=== PATIENT | female | born 1950 | race Caucasian/White ===

== ENCOUNTER 2017-08-16 17:16 | Emergency (ER) | payer MEDICARE, BC ==
[2017-08-16 17:39] VITALS: BP 131/79
--- NOTE | 2017-08-16 18:26 | UC ---
Cardiac HPI - HPI Summary HPI Summary: 66 yo WF p/w substernal sharp pains x 1 hr after hiking, no variation with inspiration or position but associated with dry cough and URI x 5 days but chills and fatigue started x 2 days - History of Current Complaint Chief Complaint: UCRespiratory Stated Complaint: COUGH Time Seen by Provider: 08/16/17 18:11 Hx Obtained From: Patient Onset/Duration: Lasting Days Initial Severity: Moderate Current Severity: Moderate Pain Intensity: 4 Chest Pain Location: Mid Sternal, Upper Sternal - Allergy/Home Medications Allergies/Adverse Reactions: Allergies Allergy/AdvReac Type Severity Reaction Status Date / Time erythromycin base Allergy GI Upset Verified 08/16/17 17:40 gentamicin Allergy See Comment Verified 08/16/17 17:40 Penicillins Allergy Rash Verified 08/16/17 17:40 Sulfa (Sulfonamide Allergy Hives Verified 08/16/17 17:40 Antibiotics) Home Medications: Home Medications C,E,Zinc,Copper 11/Dxgtf1e/Lut [Ocuvite Adult 50 Plus Softgel] 1 each PO [History] PMH/Surg Hx/FS Hx/Imm Hx Previously Healthy: Yes - Surgical History Surgical History: Yes Surgery Procedure, Year, and Place: Rt SHOULDER - RCT. Rt BREAST BIOPSY - BENIGN - 30+yrs ago. TUBAL LIGATION. CATARACTS - Social History Alcohol Use: Occasionally Substance Use Type: None Smoking Status (MU): Never Smoked Tobacco Review of Systems Constitutional: Fever, Chills, Fatigue Skin: Negative Eyes: Negative ENT: Negative Respiratory: Cough, Other - upper chest pain with cough Cardiovascular: Chest Pain Gastrointestinal: Negative Genitourinary: Negative Motor: Negative Neurovascular: Negative Musculoskeletal: Negative Neurological: Negative Psychological: Negative All Other Systems Reviewed And Are Negative: Yes Physical Exam Triage Information Reviewed: Yes Appearance: Thin Vital Signs: Initial Vital Signs Temp 37.5 C 08/16/17 17:29 Pulse 77 08/16/17 17:29 Resp 18 08/16/17 17:29 BP 131/79 08/16/17 17:29 Pulse Ox 99 08/16/17 17:29 Eye Exam: Normal ENT Exam: Normal ENT: Positive: Pharynx normal Dental Exam: Normal Neck exam: Normal Neck: Positive: 1 Respiratory: Positive: No respiratory distress, Other: - mild coarse BS B/L Cardiovascular Exam: Normal Abdominal Exam: Normal Musculoskeletal Exam: Normal Neurological Exam: Normal Psychological Exam: Normal Skin Exam: Normal - Assessment/Plan Course Of Treatment: CXR - large lung volumes with mild right perihilar density> L, no cesar infiltrates. Rapid Flu positive for Flu B. Will tx for acute Flu as bodyaches started about 2 days ago preceded by URI sx and bronchitis as secondary infection in light of pt's presentation - Clinical Impression Provider Diagnoses: Influenza B. Bronchitis Discharge - Sign-Out/Discharge Documenting (check all that apply): Discharge - Discharge Plan Condition: Stable Disposition: HOME Prescriptions: Cefuroxime 500 MG(NF) 500 mg PO BID 7 Days #14 tab Oseltamivir CAP* [Tamiflu CAP*] 75 mg PO BID 5 Days #10 cap Referrals: Jonny Tan MD [Primary Care Provider] - - Billing Disposition and Condition Condition: STABLE Disposition: HOME
--- NOTE | 2017-08-16 18:47 | RAD ---
INDICATION: Substernal chest pain for 3 hours. Minor cough. COMPARISON: No relevant prior exams available on the [facility] for comparison. TECHNIQUE: Dual energy PA and routine lateral views of the chest were obtained. REPORT: Elevated lung volumes and both diffuse mild prominence of the interstitial markings and patchy rarefaction of the mid to upper lung zone interstitial markings. No focal pulmonary lesion, compelling alveolar consolidation, pleural effusion, pneumothorax. The heart, pulmonary vasculature, and mediastinal contours are unremarkable. Surgical anchor at the RIGHT humeral head. IMPRESSION: 1. Stigmata of potential chronic obstructive pulmonary disease. 2. No acute cardiopulmonary process evident.
== END 2017-08-16 19:26 | disposition home or self-care (01) ==
LOC: UCEAST 17:16
DX: J10.1 Influenza due to other identified influenza virus with other respiratory manifestations (principal); J40 Bronchitis, not specified as acute or chronic; Z88.1 Allergy status to other antibiotic agents; Z88.0 Allergy status to penicillin; Z88.2 Allergy status to sulfonamides
CPT/HCPCS: 71046; 87502; 93005; 99212; G0463

== ENCOUNTER 2017-08-19 13:16 | Emergency (ER) | payer MEDICARE, BC ==
[2017-08-19 14:08] VITALS: BP 128/83
--- NOTE | 2017-08-19 14:24 | UC ---
FLU HPI - HPI Summary HPI Summary: Patient was seen at the urgent care 3 days ago diagnosed with flu and bronchitis was treated with Ceftin and Tamiflu. Patient comes to the urgent care today stating that she had chest discomfort while she was out ambulating on a mild block with her patient says the chest discomfort continues. Patient is a little put off by the thought that this might be cardiac issue and is absolutely positive that this is a respiratory issue. Of which I'm not completely convinced based on her story - History of Current Complaint Chief Complaint: UCRespiratory Stated Complaint: CHEST CONGESTION Time Seen by Provider: 08/19/17 14:13 Hx Obtained From: Patient ?: No Onset/Duration: Sudden Onset Severity Currently: Moderate Severity Initially: Moderate Pain Intensity: 4 Pain Scale Used: 0-10 Numeric Associated Signs & Symptoms: Positive: Negative Related Hx: Possible Flu/Infectious Exposure - Allergy/Home Medications Allergies/Adverse Reactions: Allergies Allergy/AdvReac Type Severity Reaction Status Date / Time erythromycin base Allergy GI Upset Verified 08/19/17 14:09 gentamicin Allergy See Comment Verified 08/19/17 14:09 Penicillins Allergy Rash Verified 08/19/17 14:09 Sulfa (Sulfonamide Allergy Hives Verified 08/19/17 14:09 Antibiotics) PMH/Surg Hx/FS Hx/Imm Hx Previously Healthy: Yes - Surgical History Surgical History: Yes Surgery Procedure, Year, and Place: Rt SHOULDER - RCT. Rt BREAST BIOPSY - BENIGN - 30+yrs ago. TUBAL LIGATION. CATARACTS - Family History Known Family History: Positive: None - Social History Occupation: Retired Lives: With Family Alcohol Use: Occasionally Substance Use Type: None Smoking Status (MU): Never Smoked Tobacco Review of Systems Constitutional: Negative Skin: Negative Eyes: Negative ENT: Negative Respiratory: Negative Cardiovascular: Chest Pain - Describes as a midsternal pressure began when she was ambulating Gastrointestinal: Negative Genitourinary: Negative Motor: Negative Neurovascular: Negative Musculoskeletal: Negative Neurological: Negative Psychological: Negative Is Patient Immunocompromised?: No All Other Systems Reviewed And Are Negative: Yes Physical Exam Triage Information Reviewed: Yes Appearance: Well-Appearing, No Pain Distress, Well-Nourished Vital Signs: Initial Vital Signs Temp 98.2 F 08/19/17 14:05 Pulse 71 08/19/17 14:05 Resp 12 08/19/17 14:05 BP 128/83 08/19/17 14:05 Pulse Ox 100 08/19/17 14:05 Vital Signs Reviewed: Yes Eye Exam: Normal Eyes: Positive: Conjunctiva Clear ENT Exam: Normal ENT: Positive: Normal ENT inspection, Hearing grossly normal, Pharynx normal, Uvula midline. Negative: Nasal congestion, TMs normal, Tonsillar swelling, Tonsillar exudate, Trismus, Muffled voice, Hoarse voice, Dental tenderness, Sinus tenderness Dental Exam: Normal Neck exam: Normal Neck: Positive: Supple, Nontender, No Lymphadenopathy Respiratory Exam: Normal Respiratory: Positive: Chest non-tender, Lungs clear, Normal breath sounds, No respiratory distress, No accessory muscle use Cardiovascular Exam: Normal Cardiovascular: Positive: RRR, No Murmur, Pulses Normal, Brisk Capillary Refill Musculoskeletal Exam: Normal Musculoskeletal: Positive: Strength Intact, ROM Intact, No Edema Neurological Exam: Normal Neurological: Positive: Alert, Muscle Tone Normal Psychological Exam: Normal Skin Exam: Normal Diagnostics - EKG Cardiac Rate: NL Cardiac Rhythm: Sinus: Normal Ectopy: None Flu Course/Dx - Course Course Of Treatment: Patient indecisive she was willing to go to the hospital by EMS. EMS called patient refused patient signed AMA that she'll take herself to the hospital aspirin given - Differential Dx/Diagnosis Provider Diagnoses: Chest pain, influenza, bronchitis Discharge - Sign-Out/Discharge Documenting (check all that apply): Discharge - Discharge Plan Condition: Guarded Disposition: HOME Discharge Disposition Comment: patient is being discharged to go to the [facility] for evaluation of c Patient Education Materials: Chest Pain (ED) Referrals: Jonny Tan MD [Primary Care Provider] - - Billing Disposition and Condition Condition: GUARDED Disposition: HOME
[2017-08-19] MEDS ORDERED: Albuterol/Ipratropium NEB.SOL* Albuterol 2.5 MG/Ipratropium 0.5 MG 3 ML INH ONE (14:32)
[2017-08-19] MEDS ORDERED: Aspirin 81 mg CHEW TAB* 81 MG TAB.CHEW PO ONE (15:26)
== END 2017-08-19 15:45 | disposition home or self-care (01) ==
LOC: UCEAST 13:16
DX: J11.1 Influenza due to unidentified influenza virus with other respiratory manifestations (principal); J40 Bronchitis, not specified as acute or chronic; R07.89 Other chest pain; Z88.1 Allergy status to other antibiotic agents; Z88.0 Allergy status to penicillin
CPT/HCPCS: 93005; 99212; A9270-GY; G0463

== ENCOUNTER 2017-08-19 16:07 | Emergency (ER) | payer MEDICARE, BC ==
[2017-08-19] MEDS ORDERED: NS 0.9% 1000 ML* 1,000 ML IV SCH (18:00)
--- NOTE | 2017-08-19 18:32 | RAD ---
INDICATION: Cough and shortness of breath COMPARISON: Chest x-ray August 16, 2017 TECHNIQUE: PA and lateral views of the chest were obtained. FINDINGS: The heart and mediastinum are normal in size and contour. The lungs are grossly clear. There is no evidence of large pleural effusion. Visualized bones are normal for the patient's age. There is no radiographic evidence of free air beneath the diaphragm IMPRESSION: No radiographic evidence of acute cardiopulmonary disease.
[2017-08-19 18:43] LABS: ABS Basophils 0.1 10^3/ul (0-0.2); ABS Eosinophils 0 10^3/ul (0-0.6); ABS Lymphocytes 1.2 10^3/ul (1.0-4.8); ABS Monocytes 0.3 10^3/ul (0-0.8); ABS Neutrophils 1.1 10^3/ul (1.5-7.7); ABS Nucleated RBC 0 10^3/ul; Eosinophil % 0.6 % (0-6); Hematocrit 40 % (35-47); Hemoglobin 13.8 g/dl (12.0-16.0); Lymphocyte % 45.1 % (25-47); Mean Corpuscular HGB Conc 34 g/dl (31-36); Mean Corpuscular Hemoglobin 31 pg (27-31); Mean Corpuscular Volume 91 fL (80-97); Mean Platelet Volume 8.1 um3 (7.4-10.4); Nucleated Red Blood Cells % 0; Platelet Count 129 10^3/ul (150-450); Red Blood Count 4.43 10^6/ul (4.0-5.4); Red Cell Distribution Width 14 % (10.5-15); White Blood Count 2.7 10^3/ul (3.5-10.8)
[2017-08-19 19:01] LABS: EGFR Non-African American 84.9 (>60)
[2017-08-19] MEDS ORDERED: Iohexol 350* (CONTRAST) 500 ML MDV IV ONE (19:25)
--- NOTE | 2017-08-19 19:35 | RAD ---
INDICATION: Shortness of breath and general illness COMPARISON: None TECHNIQUE: Axial source images were acquired following the administration of 50 mL Omnipaque [address] angiographic technique. Coronal and sagittal reconstructed images were constructed and reviewed. FINDINGS: There there are no filling defects in the pulmonary arteries to indicate acute pulmonary embolic disease. There are no focal infiltrates or effusions. There are no pulmonary parenchymal masses. The heart is normal in size. There is no evidence of pericardial effusion. There is no evidence of aortic aneurysm or dissection. There is no mediastinal, hilar, or axillary lymphadenopathy. Degenerative changes of the thoracic spine includes loss of intervertebral disc height and sclerotic change of the anterior articulating endplates at T9/T10. Limited views of the upper abdomen show no abnormalities. IMPRESSION: No CT of evidence of pulmonary embolism or other acute intrathoracic abnormality.
--- NOTE | 2017-08-19 21:21 | ED ---
Nicky Lassiter Emily, scribed for Jorge Lopez MD on 08/19/17 at 1752 . HPI Chest Pain - HPI Summary HPI Summary: This patient is a 66 year old F referred to [facility] by urgent care with a chief complaint of sharp pleuritic CP that worsened today. The patient rates the pain 4/10 in severity. Symptoms aggravated by nothing. Symptoms alleviated by nothing. Patient reports SOB. Patient denies palpitations. Pt was recently diagnosed with Flu B and bronchitis, and is currently taking Zpac and Tamiflu. Pt reports feeling better and less short of breath, but became more short of breath today. - History of Current Complaint Chief Complaint: EDShortnessOfBreath Hx Obtained From: Patient Onset/Duration: Started Hours Ago, Still Present Timing: Constant, Lasting Hours Initial Severity: Moderate Current Severity: Moderate Pain Intensity: 4 Pain Scale Used: 0-10 Numeric Chest Pain Location: Mid Sternal Chest Pain Radiates: No Character: Sharp/Stabbing Aggravating Factor(s): Nothing Alleviating Factor(s): Nothing Associated Signs and Symptoms: Positive: Other: - Positive SOB. Negative palpitations - Allergy/Home Medications Allergies/Adverse Reactions: Allergies Allergy/AdvReac Type Severity Reaction Status Date / Time erythromycin base Allergy GI Upset Verified 08/19/17 14:09 gentamicin Allergy See Comment Verified 08/19/17 14:09 Penicillins Allergy Rash Verified 08/19/17 14:09 Sulfa (Sulfonamide Allergy Hives Verified 08/19/17 14:09 Antibiotics) Home Medications: Home Medications Cod Liver Oil 1 cap PO DAILY 08/19/17 [History Confirmed 08/19/17] Vitamin B Complex CAP* [B Complex CAP*] 1 cap PO DAILY 08/19/17 [History Confirmed 08/19/17] PMH/Surg Hx/FS Hx/Imm Hx Previously Healthy: Yes Endocrine/Hematology History: Denies: Hx Diabetes Cardiovascular History: Denies: Hx Hypertension, Hx Pacemaker/ICD History: Denies: Hx Renal Disease Sensory History: Denies: Hx Hearing Aid Psychiatric History: Denies: Hx Panic Disorder - Cancer History Hx Chemotherapy: No Hx Radiation Therapy: No - Surgical History Surgery Procedure, Year, and Place: Rt SHOULDER - RCT. Rt BREAST BIOPSY - BENIGN - 30+yrs ago. TUBAL LIGATION. CATARACTS Infectious Disease History: No Infectious Disease History: Reports: Traveled Outside the [place] in Last 30 Days - came back from [facility] 08/07/17 - Family History Known Family History: Positive: None - Social History Occupation: Retired Lives: With Family Alcohol Use: Occasionally Substance Use Type: Reports: None Hx Tobacco Use: No Smoking Status (MU): Never Smoked Tobacco Review of Systems Positive: Chest Pain. Negative: Palpitations Positive: Shortness Of Breath All Other Systems Reviewed And Are Negative: Yes Physical Exam - Summary Physical Exam Summary: Appearance: Well-appearing, Well-nourished Skin: Warm Eyes: Normal ENT: Normal Neck: Supple, nontender Respiratory: No wheezing. No rhonchi. No rhales. Coarse breath sounds bilaterally. Cardiovascular: Regular rate, regular rhythm. Normal S1, S2. Abdomen: Soft, nontender Musculoskeletal: Normal, Strength/ROM Intact Neurological: Normal, A&Ox3 Psychiatric: Normal General: No acute distress Triage Information Reviewed: Yes Vital Signs On Initial Exam: Initial Vitals Temp Pulse Resp BP Pulse Ox 97.5 F 76 16 135/92 100 08/19/17 16:11 08/19/17 16:11 08/19/17 16:11 08/19/17 16:11 08/19/17 16:11 Vital Signs Reviewed: Yes Diagnostics - Vital Signs Vital Signs Temp Pulse Resp BP Pulse Ox 08/19/17 16:11 97.5 F 76 16 135/92 100 - Laboratory Lab Results: Lab Results 08/19/17 08/19/17 08/19/17 Range/Units 18:33 18:33 18:33 WBC 2.7 L (3.5-10.8) 10^3/ul RBC 4.43 (4.0-5.4) 10^6/ul Hgb 13.8 (12.0-16.0) g/dl Hct 40 (35-47) % MCV 91 (80-97) fL MCH 31 (27-31) pg MCHC 34 (31-36) g/dl RDW 14 (10.5-15) % Plt Count 129 L (150-450) 10^3/ul MPV 8.1 (7.4-10.4) um3 Neut % (Auto) 39.6 (38-83) % Lymph % (Auto) 45.1 (25-47) % [place] % (Auto) 12.6 H (0-7) % Eos % (Auto) 0.6 (0-6) % Baso % (Auto) 2.1 H (0-2) % Absolute Neuts (auto) 1.1 L (1.5-7.7) 10^3/ul Absolute Lymphs (auto) 1.2 (1.0-4.8) 10^3/ul Absolute Monos (auto) 0.3 (0-0.8) 10^3/ul Absolute Eos (auto) 0 (0-0.6) 10^3/ul Absolute Basos (auto) 0.1 (0-0.2) 10^3/ul Absolute Nucleated RBC 0 10^3/ul Nucleated RBC % 0 D-Dimer, Quantitative < 200 (Less Than 230) ng/mL Sodium 135 L (139-145) mmol/L Potassium 3.6 (3.5-5.0) mmol/L Chloride 101 (101-111) mmol/L Carbon Dioxide 26 (22-32) mmol/L Anion Gap 8 (2-11) mmol/L BUN 9 (6-24) mg/dL Creatinine 0.69 (0.51-0.95) mg/dL Est GFR ( Amer) 109.1 (>60) Est GFR (Non-Af Amer) 84.9 (>60) BUN/Creatinine Ratio 13.0 (8-20) Glucose 109 H (70-100) mg/dL Calcium 9.4 (8.6-10.3) mg/dL Total Bilirubin 0.40 (0.2-1.0) mg/dL AST 54 H (13-39) U/L ALT 46 (7-52) U/L Alkaline Phosphatase 40 (34-104) U/L Troponin I 0.00 (<0.04) ng/mL Total Protein 6.7 (6.4-8.9) g/dL Albumin 4.4 (3.2-5.2) g/dL Globulin 2.3 (2-4) g/dL Albumin/Globulin Ratio 1.9 (1-3) Result Diagrams: 08/19/17 18:33 08/19/17 18:33 Lab Statement: Any lab studies that have been ordered have been reviewed, and results considered in the medical decision making process. - Radiology CXR Radiology Interpretation Completed By: Radiologist - CXR reveals, per radiologist, no radiographic evidence of acute cardiopulmonary disease. ED physician has reviewed this radiology report. - CT Chest CT CT Interpretation Completed By: Radiologist - Chest CT reveals, per radiologist , no CT evidence of pulmonary embolism or other acute intrathoracic abnormality. ED physician has reviewed this radiology report. - EKG 182 Cardiac Rate: NL EKG Rhythm: Sinus Rhythm - 64 BPM EKG Interpretation: No ST T wave changes Chest Pain Course/Dx - Course Course Of Treatment: CTA neg for PE, mild leukopenia with monocytosis may be c/ w recent dx of Flu B. trop neg, CXR read as neg but I see some perihilar infiltrates. Pt already on Tamiflu and Z-golden from prior UC visit - Diagnoses Provider Diagnoses: Dyspnea, unspecified Discharge - Sign-Out/Discharge Documenting (check all that apply): Discharge - Discharge Plan Condition: Stable Disposition: HOME Patient Education Materials: Dyspnea (ED) Referrals: Jonny Tan MD [Primary Care Provider] - Additional Instructions: follow up with PCP within one week - Billing Disposition and Condition Condition: STABLE Disposition: HOME The documentation as recorded by the Nicky jackson Emily accurately reflects the service I personally performed and the decisions made by , Jorge Lopez MD.
[2017-08-19 21:39] VITALS: BP 106/80
== END 2017-08-19 21:38 | disposition home or self-care (01) ==
LOC: ED 16:07
DX: R06.00 Dyspnea, unspecified (principal); Z88.0 Allergy status to penicillin; Z88.2 Allergy status to sulfonamides; J11.1 Influenza due to unidentified influenza virus with other respiratory manifestations; J40 Bronchitis, not specified as acute or chronic; R07.89 Other chest pain
CPT/HCPCS: 36415; 71046; 71275; 80053; 84484; 85025; 85379; 87040; 93005; 96360; 96374; 99283; Q9967

== ENCOUNTER 2018-02-22 06:05 | Observation (INO) | payer MEDICARE, BC ==
[~2018-02-22 06:05] MED LIST: Buffered Lidocaine 0.9% SYRIN* 5 ML/SYR SYRINGE INTRADERM ONE; Dexamethasone IV* 4 MG/ML 1 ML (4 MG) IV SLOW PU ONE; Famotidine IV* 10 MG/ML 2 ML (20 mg) IV ONE
[2018-02-22] MEDS ORDERED: Famotidine IV* 10 MG/ML 2 ML (20 mg) ONE (06:24)
[2018-02-22] MEDS ORDERED: Buffered Lidocaine 0.9% SYRIN* 5 ML/SYR SYRINGE ONE (06:24)
[2018-02-22] MEDS ORDERED: Dexamethasone IV* 4 MG/ML 1 ML (4 MG) ONE (06:24)
[2018-02-22] MEDS ORDERED: Vancomycin(*) 750 MG in NS 0.9% 250 ML* 250 ML IVPB ONE (07:00)
[2018-02-22] MEDS ORDERED: Thrombin 5,000 UNITS* 1 APPLIC KIT - topical use - TOPICAL ONE (07:23)
[2018-02-22] MEDS ORDERED: Lidocaine 1% MPF wEPI 200,000* 30 ML SDV ONE (07:23)
[2018-02-22] MEDS ORDERED: Bacitracin IV* 50,000 UNITS INJ ONE (07:24)
[2018-02-22] MEDS ORDERED: fentaNYL* 50 MCG/ML 5 ML VIAL (250 MCG VIAL) ONE (07:31)
[2018-02-22] MEDS ORDERED: Midazolam* 1 MG/ML 5 ML VIAL (5 MG) ONE (07:31)
[2018-02-22] MEDS ORDERED: Atracurium* 10 MG/ML 10 ML VIAL ONE (07:31)
[2018-02-22] MEDS ORDERED: Lidocaine 2% PF * 5 ML VIAL ONE (07:33)
[2018-02-22] MEDS ORDERED: DiMENhydriNATE IV* 50 MG/ML VIAL IV PUSH PRN (09:05)
[2018-02-22] MEDS ORDERED: fentaNYL* 50 MCG/ML 2 ML VIAL (100 MCG VIAL) IV PRN (09:05)
[2018-02-22] MEDS ORDERED: Ondansetron INJ* 2 MG/ML VIAL IV PRN ×2 (09:05→10:12)
[2018-02-22] MEDS ORDERED: Scopolamine 1.5 mg* PATCH TRANSDERM PRN (09:05)
[2018-02-22] MEDS ORDERED: HYDROmorphone INJ1* 1 MG/ML SYRINGE IV PRN (09:05)
[2018-02-22] MEDS ORDERED: Naloxone* 0.4 MG/ML 1 ML VIAL IV PRN (09:05)
[2018-02-22] MEDS ORDERED: Ondansetron INJ* 2 MG/ML VIAL ONE ×2 (09:29→11:29)
[2018-02-22] MEDS ORDERED: Propofol* 10 MG/ML 20 ML BTL IV PUSH ONE (09:29)
[2018-02-22] MEDS ORDERED: EPHEDrine (Pressors)* 50 MG/ML VIAL ONE (09:31)
[2018-02-22] MEDS ORDERED: Magnesium Hydroxide LIQ* 30 ML UDC PO PRN (10:12)
[2018-02-22] MEDS ORDERED: Acetaminophen TAB* 325 MG PO PRN (10:12)
[2018-02-22] MEDS ORDERED: HYDROcodone/ACETAMIN 5-325 MG* 1 TAB PO PRN (10:12)
--- NOTE | 2018-02-22 10:50 | RAD ---
INDICATION: Lumbar discectomy COMPARISONS: MRI dated November 13, 2017 TECHNIQUE: Fluoroscopy was provided for a surgical procedure. Total fluoroscopy time is: 20.1 seconds FINDINGS: There is transitional anatomy. Using the counting scheme described on the previous MRI with S1 as the last transitional vertebral body, a metallic probe is noted at L5-S1. IMPRESSION: FLUOROSCOPY WAS PROVIDED FOR A SURGICAL PROCEDURE CPT II Codes: G9500
[2018-02-22] MEDS ORDERED: HYDROcodone/ACETAMIN 5-325 MG* 1 TAB ONE (11:30)
[2018-02-22] MEDS ORDERED: Codeine TAB* 15 MG PO ONE (11:55)
[2018-02-22] MEDS ORDERED: Codeine TAB* 15 MG ONE (11:59)
[2018-02-22] MEDS: Codeine TAB* 15 MG PO PRN ×2 (17:41→21:46)
--- NOTE | 2018-02-22 22:26 | PN ---
Progress Note - Progress Note Date of Service: 02/22/18 SOAP: Subjective: []Patient is doing very well. Tolerated procedure well. Able to ambulate, Void. Preop Right LE pain significantly improved.PT evaluated patient this pm. Patient is happy with her progress. Objective: []VSS, Afebrile Wound s,c,d AAOx3 ERIN, CN II-XII grossly intact. Motor 5/5 all extremities Sensory grossly intact to light touch Assessment: []67 yof POD#0 Rt L5-S1 discectomy Plan: [] Monitor VS, Neurochecks Encourage ambulation PT, onsite case manager for discharge. Patient has concerns regarding her ability to return home, as she has a 45 min ride Prior to surgery patient was not able to sit on a chair, as she was afraid that this may exacerbate her pain. BEAU planning Muscle relaxant. Kaz Maradiaga MD
[2018-02-22] MEDS: Cyclobenzaprine TAB* 10 MG PO PRN (23:14)
--- NOTE | 2018-02-23 01:57 | OP ---
DATE OF OPERATION: 02/22/18 - ROOM #353 DATE OF : 48 SURGEON: Musa Maradiaga MD WAX ENGRAVER: ALEC Dodson The case was done with assistance of surgical PA because of the complexity of the case. ANESTHESIA: General. PRE-OP DIAGNOSES: Right L5-S1 herniated nucleus pulposus, lumbar stenosis. POST-OP DIAGNOSES: Right L5-S1 herniated nucleus pulposus, lumbar stenosis. OPERATIVE PROCEDURE: The patient underwent right L5-S1 minimally invasive diskectomy and foraminotomy with decompressive laminectomy. ESTIMATED BLOOD LOSS: 5 cc. COMPLICATIONS: None. SUMMARY: The patient is a very pleasant 67-year-old female with complaints of back pain radiating to the right lower extremity. The patient had intractable pain and was not able to carry on her daily activities, she was not able to sit down for 3 months. MRI revealed large right L5-S1 disk herniation with significant lateral recess stenosis and canal stenosis. After failing conservative treatment modalities, she was offered the option of surgical intervention. After all expectations, limitations, possible complications of the procedure have been explained in detail to the patient with complications including but not limited to bleeding, infection, risk of injury to adjacent structures, coma, paralysis, , need for additional procedures, anesthesia risks, stroke, blindness, cancer, instability, spinal fluid leak, adjacent level disease, recurrence of the disk, hematoma formation, bladder or bowel injury and loss of control, blood vessel injury, prolonged ICU stay, need for possible gastrostomy or tracheostomy; the patient was agreeable to proceeding with surgery and informed consent was obtained. The same was discussed with her , who also was in agreement with proceeding with surgery. The patient and her understood that her condition may not improve and in fact may get worse after surgery and that she may need to have additional procedures in the future. The patient and her also understood that operative plan may be modified according to intraoperative findings and conditions and the case may be aborted or be done in more than 1 stage. DESCRIPTION OF PROCEDURE: The patient was brought to the operating room, was placed under general anesthesia by the anesthesia team. She was carefully positioned prone on the Naun frame on the Kiran table and all bony prominences were meticulously padded. The skin was prepped and draped in the standard fashion and after appropriate surgical pause and patient identification , a small right paramedian incision was marked over the L5-S1 disk space with level semiology defined similarly with the one on the Radiology report on the patient's MRI. The skin was infiltrated with local anesthetic and skin incision was made with a #10 surgical blade. The incision was carried down to the dorsal fascia and over a series of dilators, the [employer] tubular retractor system was introduced into the field. The right lamina of L5 as well as the L5- S1 facet was gently exposed and under microscope magnification, decompressive laminectomy at L5 was performed in order to allow for adequate canal decompression. The ligamentum flavum was gently retracted and removed with Kerrison punches and the dura was exposed on both sides of midline. Then, Kerrison punches and high-speed drill were used to extend the laminotomy laterally and perform a partial medial facetectomy in order to expose the lateral edge of the dura and the S1 nerve root. The left S1 nerve root was found to be under significant tension as expected from the preoperative MRI. Under the medial aspect of the facet, there was significant compression on the nerve root, which was trapped between the herniated nucleus pulposus and the medial facet. After adequately decompressing the nerve root and performing an extended foraminotomy, attention was brought to gently retract the thecal sac and the nerve root medially with nerve root retractor. Underneath, it was readily identified, a large disk herniation as expected from preoperative MRI. The extruded disk material was removed with pituitary rongeur. A significant bulging/protrusion of the disk was found and we elected to proceed with diskectomy. The annulus fibrosus was incised with a #11 surgical blade and diskectomy was carried out with use of a series of pituitary rongeurs. At the end of the diskectomy, the thecal sac and the nerve root were found to be completely free of any pressure phenomenon. After copious irrigation and confirmation of meticulous hemostasis and meticulous inspection of the wound, the tubular retractor was gently removed and hemostasis was also confirmed in each stage of the removal. The wound was then closed by layers with 0 interrupted Vicryl sutures to approximate the dorsal fascia and 2-0 inverted interrupted Vicryl sutures to approximate the subcutaneous tissue while the skin was covered with Dermabond. At the end of the procedure, all counts were reported to be correct. The patient remained hemodynamically stable throughout the case. At the end of the procedure, the patient was then turned gently supine, was extubated and was transferred to Recovery in excellent condition, moving all extremities very well. The case was done with the assistance of a surgical PA because of the complexity of the case. [id number]/CPS #: [id number] MTDD
[2018-02-23] MEDS: Codeine TAB* 15 MG PO PRN ×3 (04:30→14:10)
--- NOTE | 2018-02-23 08:16 | PN ---
Progress Note - Progress Note Date of Service: 02/23/18 SOAP: Subjective: []POD # 1 C/O leg pain with sitting Concerned about how she can make 45 min ride home OK lying or walking Objective: []Neuro intact Assessment: []Stable post op Plan: [D/C when OK with Dr. Maradiaga
[2018-02-23] MEDS: Cyclobenzaprine TAB* 10 MG PO PRN (16:01)
[2018-02-23 16:25] VITALS: BP 112/64
--- NOTE | 2018-02-26 05:19 | DS ---
DISCHARGE SUMMARY: DATE OF ADMISSION: 02/22/18 DATE OF DISCHARGE: 02/23/18 Admission Diagnosis: Degenerative Disc Disease, Herniated Nucleus Pulposus Discharge Diagnosis :Degenerative Disc Disease, Herniated Nucleus Pulposus PROCEDURE: The patient underwent right L5-S1 minimally invasive discectomy and foraminotomy with decompressive laminectomy. DISPOSITION: Home. CONDITION ON DISCHARGE: Stable. HOSPITAL COURSE: The patient is a very pleasant 67-year-old female with complaints of back pain radiating to the right lower extremity. The patient had significant back pain radiating to the right lower extremity with difficulty performing her daily activities. MRI had revealed a large right L5- S1 herniated nucleus pulposus and after failing conservative modalities, she was offered the option of right L5-S1 minimally invasive discectomy . The patient underwent the above procedure, tolerated the procedure well and was able to be transferred to the floor. On the first postoperative day, the patient reported a significant improvement of her clinical condition. She was able to ambulate, she was able to tolerate p.o. well, she was voiding and her pain was significantly improved, and she was felt to be ready to be discharged home. Full discharge instructions were given to the patient. [id number] #: [id number] MTDD
== END 2018-02-23 16:34 | disposition home or self-care (01) ==
LOC: OR 06:05 → SSU 11:22
PROVIDERS: ADMIT Neurological Surgery; ATTEND Neurological Surgery
DX: M48.061 Spinal stenosis, lumbar region without neurogenic claudication (principal); M51.27 Other intervertebral disc displacement, lumbosacral region; Z88.0 Allergy status to penicillin; M47.892 Other spondylosis, cervical region; R39.198 Other difficulties with micturition; R82.90 Unspecified abnormal findings in urine; Z79.891 Long term (current) use of opiate analgesic
CPT/HCPCS: 36430; 76001; 90471; 90686; 96374; 96375; 96376; A9270-GY; G0008; G0378; G8978-GP-CI; G8979-GP-CI; G8980-GP-CI; J1100; J2001; J2250; J2405; J2704; J3010; J3370